=== PATIENT | male | born 2000 | race Caucasian/White ===

== ENCOUNTER 2023-05-10 13:05 | Emergency (ER) | payer OTHER, SELFPAY ==
[2023-05-10 13:13] VITALS: BP 129/58; PULSE 67; RESP 16; TEMP 36.6; O2SAT 97; BMI 22.1
--- NOTE | 2023-05-10 13:21 | ED.URI ---
HPI - URI/Sore Throat <Pop Murdock PA-C - Last Filed: 05/10/23 14:16> General Chief Complaint: Upper Respiratory Symptoms Stated Complaint: chills,fever, cough Time Seen by Provider: 05/10/23 13:21 History of Present Illness HPI Narrative: This is a 23-year-old male presents emergency department due to productive cough, headaches, mildly irritated throat, and sinus congestion for the last week and a half. Has not intestines COVID. Reports slight shortness of breath denies any chest pain. Denies any sinus pain or pressure. Review of Systems <LUIS FELIPE Kaur Last Filed: 05/10/23 14:16> Review of Systems Narrative: GENERAL: Denies chills, fatigue, malaise, fever, sweats. HEENT: Reports sore throat, cough, sinus congestion, Denies sinus pain, ear pain, difficulty swallowing, dizziness. RESPIRATORY: Denies dyspnea, cough, wheezing, hemoptysis, sputum. CARDIOVASCULAR: Denies chest pain, palpitations, orthopnea, edema, GASTROINTESTINAL: Denies nausea, vomiting, abdominal pain, diarrhea, constipation, melena. : Denies dysuria, frequency, incontinence, hematuria, urinary retention. MUSCULOSKELETAL: denies weakness, joint pain, or bony pain SKIN: Denies rash, skin lesions, or other NEUROLOGIC: Denies weakness, headache, numbness, change in speech, confusion, seizures, incoordination. PSYCHIATRIC: No concerning psychosocial issues. 12 point review of systems is negative except for those stated above Patient History <LUIS FELIPE Kaur Last Filed: 05/10/23 14:16> Social History Smoking Status: Current some day smoker Smoking Status: Current some day smoker tobacco type: vaping Exam <Pop Murdock PA-C - Last Filed: 05/10/23 14:16> Narrative Exam Narrative: GENERAL: Well-developed patient, in mild distress. HEAD: Atraumatic. Normocephalic. EYES: Pupils equal round and reactive. Extraocular motions intact. No scleral icterus. No injection or drainage. ENT: Nose without bleeding, purulent drainage. Throat without erythema, tonsillar hypertrophy or exudate. Airway patent. NECK: Trachea midline. Non tender CARDIOVASCULAR: Regular rate and rhythm without murmurs, gallops, or rubs. RESPIRATORY: Clear to auscultation. Breath sounds equal bilaterally. No wheezes, rales, or rhonchi. GASTROINTESTINAL: Abdomen soft, non-tender, nondistended. EXTREMITIES: No edema or joint tenderness. BACK: Nontender without deformity or crepitance. No flank tenderness. NEURO: AOx3. SKIN: No rash or erythema of visible areas Initial Vital Signs Initial Vital Signs: Vital Signs Temperature 98 F 05/10/23 13:13 Pulse Rate 67 05/10/23 13:13 Respiratory Rate 16 05/10/23 13:13 Blood Pressure 129/58 L 05/10/23 13:13 Pulse Oximetry 97 05/10/23 13:13 Oxygen Delivery Method Room Air 05/10/23 13:13 <Chastity Mendes DO - Last Filed: 05/10/23 17:06> Initial Vital Signs Initial Vital Signs: Vital Signs Temperature 98 F 05/10/23 13:13 Pulse Rate 67 05/10/23 13:13 Respiratory Rate 16 05/10/23 13:13 Blood Pressure 129/58 L 05/10/23 13:13 Pulse Oximetry 97 05/10/23 13:13 Oxygen Delivery Method Room Air 05/10/23 13:13 Course <Pop Murdock PA-C - Last Filed: 05/10/23 14:16> Orders Ordered: ED Orders 05/10/23 13:17 Covid-19 + FLU A/B + RSV - PCR Stat Vital Signs Vital signs: Vital Signs - 8 hr 05/10/23 13:13 Temperature 98 F Pulse Rate 67 Respiratory Rate 16 Blood Pressure 129/58 L Pulse Oximetry 97 Oxygen Delivery Method Room Air <Chastity Mendes DO - Last Filed: 05/10/23 17:06> Orders Ordered: ED Orders 05/10/23 13:17 Covid-19 + FLU A/B + RSV - PCR Stat Vital Signs Vital signs: Vital Signs - 8 hr 05/10/23 13:13 Temperature 98 F Pulse Rate 67 Respiratory Rate 16 Blood Pressure 129/58 L Pulse Oximetry 97 Oxygen Delivery Method Room Air MDM - URI/Sore Throat <Pop Murdock PA-C - Last Filed: 05/10/23 14:16> Lab Data Labs: Lab Results 05/10/23 Range/Units 13:17 SARS-CoV-2 (PCR) Negative (Negative) Influenza A (RT-PCR) Flu a negative (NEGATIVE) Influenza B (RT-PCR) Flu b negative (NEGATIVE) RSV (PCR) Negative (Negative) MDM Narrative Medical decision making narrative: MDM * differential diagnosis includes but not limited to COVID, flu, RSV, bacterial sinusitis * Prior records reviewed: Patient has not been to this emergency department in the past * My lab interpretation: COVID, flu, RSV testing negative * My imgaing interpretation: None obtained * Clinical Decision Rules/Scores evaluated: None * Independent discussions with: None ED Course: This is a 23-year-old male presents to the emergency department due to suspected viral URI. Vitals within normal limits., COVID flu RSV testing negative. Recommended symptomatic and conservative measures. No erythematous in the posterior pharynx or concerns for strep throat. Shared Decision Making: Discussed plan with patient who is comfortable with the plan Social Considerations: None Disposition: Discharged to home <Chastity Mendes DO - Last Filed: 05/10/23 17:06> Lab Data Labs: Lab Results 05/10/23 Range/Units 13:17 SARS-CoV-2 (PCR) Negative (Negative) Influenza A (RT-PCR) Flu a negative (NEGATIVE) Influenza B (RT-PCR) Flu b negative (NEGATIVE) RSV (PCR) Negative (Negative) Discharge Plan Departure Patient Disposition: Home Clinical Impression: Upper respiratory infection Activity Restrictions/Additional Instructions: Thank you for coming to the [facility] Emergency Department today. As we discussed your COVID flu and RSV testing were negative. I suspect this is some other kind of viral URI. Symptoms should improve over the next week or so with plenty of rest, fluids, DayQuil, NyQuil, and Mucinex. I hope you feel better soon. Please follow up with your primary care provider within a week if your symptoms continue. If you do not have a primary care provider please contact the [facility] Resource line at [phone]. They will ask some questions about your medical history and help you get set up with a provider in the community. Stand Alone Forms: Patient Portal/API ED Sign-out <DO Fox Gloria Filed: 05/10/23 17:06> Cosign ED Attending Anya Attestation: I was immediately available in the department for consultation.
[2023-05-10 13:58] LABS: Influenza A - CEPHEID Flu A NEGATIVE (NEGATIVE); Influenza B - CEPHEID Flu B NEGATIVE (NEGATIVE); Respiratory Syncytial Virus Negative (Negative)
[2023-05-10 14:11] LABS: COVID-19 CEPHEID 4-PLEX PCR Negative (Negative)
== END 2023-05-10 14:26 | disposition home or self-care (01) ==
PROVIDERS: Emergency Medicine; Emergency Provider Physician Assistant Medical
DX: J06.9 Acute upper respiratory infection, unspecified (principal); F17.290 Nicotine dependence, other tobacco product, uncomplicated
CPT/HCPCS: 0241U; 99281; 99282